=== PATIENT | male | born 1965 | race Caucasian/White ===

== ENCOUNTER 2021-03-16 15:37 | Inpatient (IN) | payer OTHER ==
[2021-03-16] MEDS ORDERED: MAGNESIUM HYDROX 2400MG/30ML ORAL SUSPENSION 30 ML CUP PO PRN (16:50)
[2021-03-16] MEDS ORDERED: MAGNESIUM CITRATE 300 ML BOTTLE PO PRN (16:50)
[2021-03-16] MEDS ORDERED: BISMUTH SUBSALICYLATE 524 MG/30 ML PO PRN (16:50)
[2021-03-16] MEDS ORDERED: MENTHOL/PHENOL 1 EACH UD MM PRN (16:50)
[2021-03-16] MEDS ORDERED: IBUPROFEN 400 MG TABLET (FP) PO PRN (16:50)
[2021-03-16] MEDS ORDERED: ACETAMINOPHEN 325 MG TABLET (FP) PO PRN ×2 (16:50)
[2021-03-16] MEDS ORDERED: NICOTINE POLACRILEX 2 MG GUM BUC PRN (16:50)
[2021-03-16] MEDS ORDERED: ONDANSETRON *ODT* 4 MG TABLET SL PRN (16:50)
[2021-03-16 19:20] VITALS: BMI 35.2
[2021-03-16] MEDS ORDERED: ALBUTEROL SO4 HFA INHALER IH PRN (19:28)
[2021-03-16] MEDS: hydrOXYzine PAMOATE 25 MG CAPSULE (FP) PO SCH ×3 (23:22→23:34)
[2021-03-16] MEDS: levETIRAcetam 500 MG TABLET (FP) PO SCH (23:22)
[2021-03-16] MEDS: MELATONIN 5 MG TABLETS PO SCH (23:22)
[2021-03-16] MEDS: THIAMINE HCL 100 MG TABLET (FP) PO SCH (23:22)
[2021-03-16] MEDS: diazePAM 5 MG TABLET PO SCH (23:22)
[2021-03-17] MEDS: diazePAM 5 MG TABLET PO SCH ×4 (05:55→22:06)
[2021-03-17] MEDS: hydrOXYzine PAMOATE 25 MG CAPSULE (FP) PO SCH (05:55)
[2021-03-17] MEDS ORDERED: methaDONE HCL 10 MG TABLET PO ONE (09:04)
[2021-03-17] MEDS ORDERED: methaDONE HCL 40 MG DISPERSABLE TABLET ONE (10:10)
[2021-03-17] MEDS: LIDOCAINE 5% TOPICAL PATCH TP SCH (10:10)
[2021-03-17] MEDS ORDERED: methaDONE HCL 10 MG TABLET ONE (10:10)
[2021-03-17] MEDS: PRENATAL VITAMINS W/ FOLIC ACID TABLET (FP) PO SCH (10:11)
[2021-03-17] MEDS: METHOCARBAMOL 500 MG TABLET PO PRN ×2 (10:59→17:38)
[2021-03-17 12:36] LABS: HEMATOCRIT 40.2 % (35.4-49); HEMOGLOBIN 13.4 GM/dL (11.7-16.9); MCH 27.5 pg (25.7-33.7); MCHC 33.4 g/dl (32.0-35.9); MEAN CELL VOLUME 82.3 fl (80-96); MEAN PLT VOLUME 7.4 fl (7.5-11.1); PLATELET COUNT 322 10^3/uL (134-434); RBC 4.89 M/mm3 (4.00-5.60); WHITE BLOOD COUNT 6.1 K/mm3 (4.0-10.0)
[2021-03-17 13:02] LABS: ALBUMIN 3.9 g/dl (3.4-5.0)
[2021-03-17 13:03] LABS: BLOOD UREA NITROGEN 17.5 mg/dL (7-18)
[2021-03-17 13:06] LABS: CREATININE 1.1 mg/dL (0.55-1.3)
[2021-03-17 13:07] LABS: BILIRUBIN,TOTAL 0.3 mg/dL (0.2-1); TOT PROT 7.4 g/dl (6.4-8.2)
[2021-03-17] MEDS: diazePAM 5 MG TABLET PO PRN ×2 (14:12→21:08)
[2021-03-17] MEDS: hydrOXYzine PAMOATE 25 MG CAPSULE (FP) PO PRN (17:36)
[2021-03-17] MEDS: MIRTAZAPINE 15 MG TABLET (FP) PO SCH (22:05)
[2021-03-17] MEDS: MELATONIN 5 MG TABLETS PO SCH (22:05)
[2021-03-17] MEDS: THIAMINE HCL 100 MG TABLET (FP) PO SCH (22:05)
[2021-03-17] MEDS: levETIRAcetam 500 MG TABLET (FP) PO SCH (22:05)
[2021-03-17] MEDS: LIDOCAINE PATCH REMOVAL MC SCH (22:06)
[2021-03-18] MEDS ORDERED: methaDONE HCL 10 MG TABLET ONE (04:25)
[2021-03-18] MEDS ORDERED: methaDONE HCL 40 MG DISPERSABLE TABLET ONE (04:25)
[2021-03-18] MEDS ORDERED: methaDONE HCL 40 MG DISPERSABLE TABLET PO SCH (06:00)
[2021-03-18] MEDS: diazePAM 5 MG TABLET PO SCH ×3 (06:05→22:57)
[2021-03-18] MEDS: hydrOXYzine PAMOATE 25 MG CAPSULE (FP) PO PRN ×4 (06:12→22:05)
[2021-03-18] MEDS: PRENATAL VITAMINS W/ FOLIC ACID TABLET (FP) PO SCH (10:13)
[2021-03-18] MEDS: LIDOCAINE 5% TOPICAL PATCH TP SCH (10:13)
[2021-03-18] MEDS: diazePAM 5 MG TABLET PO PRN ×2 (10:16→17:18)
[2021-03-18] MEDS: METHOCARBAMOL 750 MG TAB PO PRN ×2 (13:30→22:05)
[2021-03-18] MEDS: ARTIFICIAL TEARS (POLYVINYL ALCOHOL) OPTH DROPS OU PRN (17:21)
[2021-03-18] MEDS: MELATONIN 5 MG TABLETS PO SCH (22:03)
[2021-03-18] MEDS: MIRTAZAPINE 15 MG TABLET (FP) PO SCH (22:03)
[2021-03-18] MEDS: THIAMINE HCL 100 MG TABLET (FP) PO SCH (22:03)
[2021-03-18] MEDS: levETIRAcetam 500 MG TABLET (FP) PO SCH (22:04)
[2021-03-18] MEDS: MAG HYDROX/AL HYDROX/SIMETH 30 ML UNIT-DOSE CUP PO PRN (22:07)
[2021-03-18] MEDS: LIDOCAINE PATCH REMOVAL MC SCH (22:57)
[2021-03-19] MEDS: diazePAM 5 MG TABLET PO PRN ×3 (03:02→14:21)
[2021-03-19] MEDS ORDERED: methaDONE HCL 40 MG DISPERSABLE TABLET ONE (04:42)
[2021-03-19] MEDS ORDERED: methaDONE HCL 10 MG TABLET ONE (04:42)
[2021-03-19] MEDS: diazePAM 5 MG TABLET PO SCH ×2 (06:11→17:23)
[2021-03-19] MEDS: METHOCARBAMOL 750 MG TAB PO PRN ×2 (06:15→17:27)
[2021-03-19] MEDS: hydrOXYzine PAMOATE 25 MG CAPSULE (FP) PO PRN ×2 (06:15→14:21)
[2021-03-19] MEDS: LIDOCAINE 5% TOPICAL PATCH TP SCH (10:10)
[2021-03-19] MEDS: PRENATAL VITAMINS W/ FOLIC ACID TABLET (FP) PO SCH (10:10)
[2021-03-19] MEDS: MAG HYDROX/AL HYDROX/SIMETH 30 ML UNIT-DOSE CUP PO PRN (10:15)
[2021-03-19] MEDS: ARTIFICIAL TEARS (POLYVINYL ALCOHOL) OPTH DROPS OU PRN ×2 (10:16→18:22)
[2021-03-19] MEDS: HYDROCORTISONE 1% TOPICAL CREAM 30 GM TUBE TP SCH ×2 (11:41→22:14)
[2021-03-19] MEDS: MIRTAZAPINE 15 MG TABLET (FP) PO SCH (22:13)
[2021-03-19] MEDS: MELATONIN 5 MG TABLETS PO SCH (22:14)
[2021-03-19] MEDS: THIAMINE HCL 100 MG TABLET (FP) PO SCH (22:14)
[2021-03-19] MEDS: levETIRAcetam 500 MG TABLET (FP) PO SCH (22:14)
[2021-03-19] MEDS: LIDOCAINE PATCH REMOVAL MC SCH (22:14)
[2021-03-20] MEDS ORDERED: methaDONE HCL 40 MG DISPERSABLE TABLET ONE (04:55)
[2021-03-20] MEDS ORDERED: methaDONE HCL 10 MG TABLET ONE (04:55)
[2021-03-20] MEDS: hydrOXYzine PAMOATE 25 MG CAPSULE (FP) PO PRN ×2 (05:44→10:34)
[2021-03-20] MEDS: METHOCARBAMOL 750 MG TAB PO PRN (05:45)
[2021-03-20] MEDS ORDERED: diazePAM 5 MG TABLET PO ONE (06:00)
[2021-03-20] MEDS: PRENATAL VITAMINS W/ FOLIC ACID TABLET (FP) PO SCH (10:32)
[2021-03-20] MEDS: LIDOCAINE 5% TOPICAL PATCH TP SCH (10:32)
[2021-03-20] MEDS: HYDROCORTISONE 1% TOPICAL CREAM 30 GM TUBE TP SCH (10:32)
[2021-03-20] MEDS: MAG HYDROX/AL HYDROX/SIMETH 30 ML UNIT-DOSE CUP PO PRN (10:36)
[2021-03-20 13:46] VITALS: BP 133/78; PULSE 57; TEMP 96.1
== END 2021-03-20 13:54 | disposition other institution (70) | DRG 773 ==
LOC: YASAS 15:37 → Y3N 19:22
PROVIDERS: ADMIT Allergy & Immunology; ATTEND Allergy & Immunology
PROC: HZ2ZZZZ Detoxification Services for Substance Abuse Treatment (ICD-10-PCS; principal; 2021-03-16)
DX: F10.230 Alcohol dependence with withdrawal, uncomplicated (principal); F13.230 Sedative, hypnotic or anxiolytic dependence with withdrawal, uncomplicated; F14.20 Cocaine dependence, uncomplicated; F11.20 Opioid dependence, uncomplicated; F17.220 Nicotine dependence, chewing tobacco, uncomplicated; F19.282 Other psychoactive substance dependence with psychoactive substance-induced sleep disorder; F32.9 Major depressive disorder, single episode, unspecified; G40.909 Epilepsy, unspecified, not intractable, without status epilepticus; J45.909 Unspecified asthma, uncomplicated; R76.11 Nonspecific reaction to tuberculin skin test without active tuberculosis; Z62.810 Personal history of physical and sexual abuse in childhood; Z99.89 Dependence on other enabling machines and devices; Z91.5 Personal history of self-harm; Z56.0 Unemployment, unspecified; Z59.0 Homelessness
CPT/HCPCS: 36415; 80053; 80177; 85027; 86780; 93005; 93010; C9803; Q0162; U0003; U0005

== ENCOUNTER 2021-03-20 13:51 | Inpatient (IN) | payer OTHER ==
[2021-03-20] MEDS ORDERED: LOPERAMIDE HCL 2 MG CAPSULE PO PRN (14:26)
[2021-03-20] MEDS ORDERED: MENTHOL/PHENOL 1 EACH UD MM PRN (14:26)
[2021-03-20] MEDS ORDERED: MAGNESIUM CITRATE 300 ML BOTTLE PO PRN (14:26)
[2021-03-20] MEDS ORDERED: MAGNESIUM HYDROX 2400MG/30ML ORAL SUSPENSION 30 ML CUP PO PRN (14:26)
[2021-03-20] MEDS ORDERED: ACETAMINOPHEN 325 MG TABLET (FP) PO PRN (14:26)
[2021-03-20] MEDS ORDERED: P-EPHED 60MG/TRIPROLIDI 2.5MG TABLET PO PRN (14:26)
[2021-03-20] MEDS ORDERED: guaiFENesin 200 MG/10 ML 10 ML UNIT-DOSE CUPS PO PRN (14:26)
[2021-03-20] MEDS ORDERED: ALBUTEROL SO4 HFA INHALER IH PRN (14:27)
[2021-03-20] MEDS: hydrOXYzine PAMOATE 25 MG CAPSULE (FP) PO PRN ×2 (19:11→21:32)
[2021-03-20] MEDS: IBUPROFEN 400 MG TABLET (FP) PO PRN (19:11)
[2021-03-20] MEDS: MIRTAZAPINE 15 MG TABLET (FP) PO SCH (21:31)
[2021-03-20] MEDS: MELATONIN 5 MG TABLETS PO SCH (21:31)
[2021-03-20] MEDS: levETIRAcetam 500 MG TABLET (FP) PO SCH (21:31)
[2021-03-20] MEDS: THIAMINE HCL 100 MG TABLET (FP) PO SCH (21:31)
[2021-03-20] MEDS: LIDOCAINE PATCH REMOVAL MC SCH (23:32)
[2021-03-21] MEDS: MAG HYDROX/AL HYDROX/SIMETH 30 ML UNIT-DOSE CUP PO PRN (03:19)
[2021-03-21] MEDS ORDERED: methaDONE HCL 40 MG DISPERSABLE TABLET ONE (05:44)
[2021-03-21] MEDS ORDERED: methaDONE HCL 10 MG TABLET ONE (05:44)
[2021-03-21] MEDS ORDERED: ONDANSETRON *ODT* 4 MG TABLET SL PRN (09:20)
[2021-03-21] MEDS: LIDOCAINE 5% TOPICAL PATCH TP SCH (09:41)
[2021-03-21] MEDS: hydrOXYzine PAMOATE 25 MG CAPSULE (FP) PO PRN (09:41)
[2021-03-21] MEDS: NICOTINE 7 MG/24 HOURS TOPICAL PATCH TD SCH (09:42)
[2021-03-21] MEDS: PRENATAL VITAMINS W/ FOLIC ACID TABLET (FP) PO SCH (09:42)
[2021-03-21] MEDS ORDERED: methaDONE HCL 10 MG TABLET PO ONE (15:06)
[2021-03-21] MEDS: TRIMETHOBENZAMIDE HCL 200MG/2ML INJ IM PRN (15:57)
[2021-03-21] MEDS: levETIRAcetam 500 MG TABLET (FP) PO SCH (21:41)
[2021-03-21] MEDS: MELATONIN 5 MG TABLETS PO SCH (21:44)
[2021-03-21] MEDS: MIRTAZAPINE 15 MG TABLET (FP) PO SCH (21:44)
[2021-03-21] MEDS: LIDOCAINE PATCH REMOVAL MC SCH (21:44)
[2021-03-21] MEDS: THIAMINE HCL 100 MG TABLET (FP) PO SCH (21:44)
[2021-03-22] MEDS ORDERED: methaDONE HCL 40 MG DISPERSABLE TABLET ONE (03:43)
[2021-03-22] MEDS ORDERED: methaDONE HCL 10 MG TABLET ONE (03:43)
[2021-03-22] MEDS: hydrOXYzine PAMOATE 25 MG CAPSULE (FP) PO PRN ×4 (06:25→21:38)
[2021-03-22] MEDS: TRIMETHOBENZAMIDE HCL 200MG/2ML INJ IM PRN (06:44)
[2021-03-22] MEDS: PRENATAL VITAMINS W/ FOLIC ACID TABLET (FP) PO SCH (09:40)
[2021-03-22] MEDS: NICOTINE 7 MG/24 HOURS TOPICAL PATCH TD SCH (09:40)
[2021-03-22] MEDS: LIDOCAINE 5% TOPICAL PATCH TP SCH (09:40)
[2021-03-22] MEDS: THIAMINE HCL 100 MG TABLET (FP) PO SCH (21:38)
[2021-03-22] MEDS: MELATONIN 5 MG TABLETS PO SCH (21:38)
[2021-03-22] MEDS: levETIRAcetam 500 MG TABLET (FP) PO SCH (21:40)
[2021-03-22] MEDS: LIDOCAINE PATCH REMOVAL MC SCH (21:41)
[2021-03-22] MEDS: MIRTAZAPINE 15 MG TABLET (FP) PO SCH (21:41)
[2021-03-23] MEDS ORDERED: methaDONE HCL 10 MG TABLET ONE (03:15)
[2021-03-23] MEDS ORDERED: methaDONE HCL 40 MG DISPERSABLE TABLET ONE (03:16)
[2021-03-23] MEDS: NICOTINE 7 MG/24 HOURS TOPICAL PATCH TD SCH (10:05)
[2021-03-23] MEDS: PRENATAL VITAMINS W/ FOLIC ACID TABLET (FP) PO SCH (10:05)
[2021-03-23] MEDS: LIDOCAINE 5% TOPICAL PATCH TP SCH (10:05)
[2021-03-23] MEDS: hydrOXYzine PAMOATE 25 MG CAPSULE (FP) PO PRN ×4 (10:06→21:23)
[2021-03-23] MEDS ORDERED: COVID-19 VAC,AD26(JANSSEN)/PF 0.5 ML IM ONE (11:00)
[2021-03-23] MEDS ORDERED: levETIRAcetam 500 MG TABLET (FP) PO ONE (12:14)
[2021-03-23] MEDS: ARTIFICIAL TEARS (POLYVINYL ALCOHOL) OPTH DROPS OD PRN (13:29)
[2021-03-23] MEDS ORDERED: PT OWN MED DRAWER 7, Y5N ONE ×2 (13:29→21:24)
[2021-03-23] MEDS: IBUPROFEN 400 MG TABLET (FP) PO PRN (17:39)
[2021-03-23] MEDS: MIRTAZAPINE 15 MG TABLET (FP) PO SCH (21:22)
[2021-03-23] MEDS: THIAMINE HCL 100 MG TABLET (FP) PO SCH (21:23)
[2021-03-23] MEDS: MELATONIN 5 MG TABLETS PO SCH (21:23)
[2021-03-23] MEDS: LIDOCAINE PATCH REMOVAL MC SCH (22:02)
[2021-03-23] MEDS: levETIRAcetam 500 MG TABLET (FP) PO SCH (22:05)
[2021-03-24] MEDS ORDERED: methaDONE HCL 10 MG TABLET ONE (03:24)
[2021-03-24] MEDS ORDERED: methaDONE HCL 40 MG DISPERSABLE TABLET ONE (03:25)
[2021-03-24] MEDS: ARTIFICIAL TEARS (POLYVINYL ALCOHOL) OPTH DROPS OD PRN ×2 (07:15→17:57)
[2021-03-24] MEDS ORDERED: PT OWN MED DRAWER 7, Y5N ONE ×2 (07:16→17:56)
[2021-03-24] MEDS: levETIRAcetam 500 MG TABLET (FP) PO SCH ×2 (09:35→21:34)
[2021-03-24] MEDS: NICOTINE 7 MG/24 HOURS TOPICAL PATCH TD SCH (09:35)
[2021-03-24] MEDS: hydrOXYzine PAMOATE 25 MG CAPSULE (FP) PO PRN ×3 (09:35→17:57)
[2021-03-24] MEDS: PRENATAL VITAMINS W/ FOLIC ACID TABLET (FP) PO SCH (09:35)
[2021-03-24] MEDS: IBUPROFEN 400 MG TABLET (FP) PO PRN ×2 (09:35→17:57)
[2021-03-24] MEDS: LIDOCAINE 5% TOPICAL PATCH TP SCH (09:35)
[2021-03-24] MEDS: LIDOCAINE PATCH REMOVAL MC SCH (21:34)
[2021-03-24] MEDS: MELATONIN 5 MG TABLETS PO SCH (21:35)
[2021-03-24] MEDS: MIRTAZAPINE 15 MG TABLET (FP) PO SCH (21:35)
[2021-03-24] MEDS: THIAMINE HCL 100 MG TABLET (FP) PO SCH (21:35)
[2021-03-25] MEDS ORDERED: methaDONE HCL 10 MG TABLET ONE (03:36)
[2021-03-25] MEDS ORDERED: methaDONE HCL 40 MG DISPERSABLE TABLET ONE (03:36)
[2021-03-25] MEDS: PRENATAL VITAMINS W/ FOLIC ACID TABLET (FP) PO SCH (09:46)
[2021-03-25] MEDS: LIDOCAINE 5% TOPICAL PATCH TP SCH (09:46)
[2021-03-25] MEDS: NICOTINE 7 MG/24 HOURS TOPICAL PATCH TD SCH (09:46)
[2021-03-25] MEDS: levETIRAcetam 500 MG TABLET (FP) PO SCH ×2 (09:46→21:26)
[2021-03-25] MEDS: ARTIFICIAL TEARS (POLYVINYL ALCOHOL) OPTH DROPS OD PRN ×2 (09:47→21:25)
[2021-03-25] MEDS: hydrOXYzine PAMOATE 25 MG CAPSULE (FP) PO PRN ×3 (09:48→21:26)
[2021-03-25] MEDS ORDERED: PT OWN MED DRAWER 7, Y5N ONE ×4 (10:07→21:26)
[2021-03-25] MEDS: MIRTAZAPINE 15 MG TABLET (FP) PO SCH (21:26)
[2021-03-25] MEDS: MELATONIN 5 MG TABLETS PO SCH (21:26)
[2021-03-25] MEDS: THIAMINE HCL 100 MG TABLET (FP) PO SCH (21:26)
[2021-03-25] MEDS: LIDOCAINE PATCH REMOVAL MC SCH (22:40)
[2021-03-26] MEDS ORDERED: methaDONE HCL 40 MG DISPERSABLE TABLET ONE (03:55)
[2021-03-26] MEDS ORDERED: methaDONE HCL 10 MG TABLET ONE (03:55)
[2021-03-26] MEDS: LIDOCAINE 5% TOPICAL PATCH TP SCH (09:50)
[2021-03-26] MEDS: NICOTINE 7 MG/24 HOURS TOPICAL PATCH TD SCH (09:50)
[2021-03-26] MEDS: levETIRAcetam 500 MG TABLET (FP) PO SCH ×2 (09:50→21:11)
[2021-03-26] MEDS: PRENATAL VITAMINS W/ FOLIC ACID TABLET (FP) PO SCH (09:50)
[2021-03-26] MEDS: hydrOXYzine PAMOATE 25 MG CAPSULE (FP) PO PRN ×3 (09:51→21:12)
[2021-03-26] MEDS ORDERED: PT OWN MED DRAWER 7, Y5N ONE ×3 (09:52→15:41)
[2021-03-26] MEDS: ARTIFICIAL TEARS (POLYVINYL ALCOHOL) OPTH DROPS OD PRN (09:52)
[2021-03-26] MEDS: IBUPROFEN 400 MG TABLET (FP) PO PRN (13:42)
[2021-03-26] MEDS: THIAMINE HCL 100 MG TABLET (FP) PO SCH (21:11)
[2021-03-26] MEDS: MIRTAZAPINE 15 MG TABLET (FP) PO SCH (21:12)
[2021-03-26] MEDS: MELATONIN 5 MG TABLETS PO SCH (21:16)
[2021-03-26] MEDS: LIDOCAINE PATCH REMOVAL MC SCH (23:21)
[2021-03-27] MEDS ORDERED: methaDONE HCL 10 MG TABLET ONE (04:02)
[2021-03-27] MEDS ORDERED: methaDONE HCL 40 MG DISPERSABLE TABLET ONE (04:03)
[2021-03-27] MEDS: ARTIFICIAL TEARS (POLYVINYL ALCOHOL) OPTH DROPS OD PRN ×3 (06:24→21:11)
[2021-03-27] MEDS: NICOTINE 7 MG/24 HOURS TOPICAL PATCH TD SCH (10:07)
[2021-03-27] MEDS: LIDOCAINE 5% TOPICAL PATCH TP SCH (10:07)
[2021-03-27] MEDS: levETIRAcetam 500 MG TABLET (FP) PO SCH ×2 (10:07→21:08)
[2021-03-27] MEDS: PRENATAL VITAMINS W/ FOLIC ACID TABLET (FP) PO SCH (10:07)
[2021-03-27] MEDS: hydrOXYzine PAMOATE 25 MG CAPSULE (FP) PO PRN ×4 (10:08→21:08)
[2021-03-27] MEDS: NICOTINE POLACRILEX 2 MG GUM BUC PRN (10:11)
[2021-03-27] MEDS: MIRTAZAPINE 15 MG TABLET (FP) PO SCH (21:07)
[2021-03-27] MEDS: THIAMINE HCL 100 MG TABLET (FP) PO SCH (21:08)
[2021-03-27] MEDS ORDERED: PT OWN MED DRAWER 7, Y5N ONE (21:13)
[2021-03-27] MEDS: LIDOCAINE PATCH REMOVAL MC SCH (22:06)
[2021-03-27] MEDS: MELATONIN 5 MG TABLETS PO SCH (22:06)
[2021-03-28] MEDS ORDERED: methaDONE HCL 40 MG DISPERSABLE TABLET ONE (05:50)
[2021-03-28] MEDS ORDERED: methaDONE HCL 10 MG TABLET ONE (05:50)
[2021-03-28] MEDS ORDERED: PT OWN MED DRAWER 7, Y5N ONE (08:19)
[2021-03-28] MEDS: LIDOCAINE 5% TOPICAL PATCH TP SCH (09:52)
[2021-03-28] MEDS: NICOTINE 7 MG/24 HOURS TOPICAL PATCH TD SCH (09:53)
[2021-03-28] MEDS: levETIRAcetam 500 MG TABLET (FP) PO SCH ×2 (09:53→21:07)
[2021-03-28] MEDS: hydrOXYzine PAMOATE 25 MG CAPSULE (FP) PO PRN ×2 (09:54→21:08)
[2021-03-28] MEDS: PRENATAL VITAMINS W/ FOLIC ACID TABLET (FP) PO SCH (09:54)
[2021-03-28] MEDS: MAG HYDROX/AL HYDROX/SIMETH 30 ML UNIT-DOSE CUP PO PRN (14:55)
[2021-03-28] MEDS: ARTIFICIAL TEARS (POLYVINYL ALCOHOL) OPTH DROPS OD PRN (21:05)
[2021-03-28] MEDS: MIRTAZAPINE 15 MG TABLET (FP) PO SCH (21:06)
[2021-03-28] MEDS: THIAMINE HCL 100 MG TABLET (FP) PO SCH (21:07)
[2021-03-28] MEDS: LIDOCAINE PATCH REMOVAL MC SCH (22:08)
[2021-03-28] MEDS: MELATONIN 5 MG TABLETS PO SCH (22:09)
[2021-03-29] MEDS ORDERED: methaDONE HCL 10 MG TABLET ONE (03:27)
[2021-03-29] MEDS ORDERED: methaDONE HCL 40 MG DISPERSABLE TABLET ONE (03:28)
[2021-03-29] MEDS ORDERED: PT OWN MED DRAWER 7, Y5N ONE ×3 (08:26→10:14)
[2021-03-29] MEDS: LIDOCAINE 5% TOPICAL PATCH TP SCH (10:08)
[2021-03-29] MEDS: NICOTINE 7 MG/24 HOURS TOPICAL PATCH TD SCH (10:08)
[2021-03-29] MEDS: levETIRAcetam 500 MG TABLET (FP) PO SCH ×2 (10:08→21:05)
[2021-03-29] MEDS: hydrOXYzine PAMOATE 25 MG CAPSULE (FP) PO PRN (10:09)
[2021-03-29] MEDS: PRENATAL VITAMINS W/ FOLIC ACID TABLET (FP) PO SCH (10:09)
[2021-03-29] MEDS: ARTIFICIAL TEARS (POLYVINYL ALCOHOL) OPTH DROPS OD PRN (10:10)
[2021-03-29] MEDS: MIRTAZAPINE 15 MG TABLET (FP) PO SCH (21:05)
[2021-03-29] MEDS: THIAMINE HCL 100 MG TABLET (FP) PO SCH (21:06)
[2021-03-29] MEDS: MELATONIN 5 MG TABLETS PO SCH (21:06)
[2021-03-29] MEDS: LIDOCAINE PATCH REMOVAL MC SCH (21:07)
[2021-03-30] MEDS ORDERED: methaDONE HCL 10 MG TABLET ONE (03:33)
[2021-03-30] MEDS ORDERED: methaDONE HCL 40 MG DISPERSABLE TABLET ONE (03:34)
[2021-03-30] MEDS: PRENATAL VITAMINS W/ FOLIC ACID TABLET (FP) PO SCH (09:50)
[2021-03-30] MEDS: levETIRAcetam 500 MG TABLET (FP) PO SCH ×2 (09:50→21:06)
[2021-03-30] MEDS: NICOTINE 7 MG/24 HOURS TOPICAL PATCH TD SCH (09:50)
[2021-03-30] MEDS: LIDOCAINE 5% TOPICAL PATCH TP SCH (09:50)
[2021-03-30] MEDS: hydrOXYzine PAMOATE 25 MG CAPSULE (FP) PO PRN ×2 (09:51→18:05)
[2021-03-30] MEDS: NICOTINE POLACRILEX 2 MG GUM BUC PRN (09:53)
[2021-03-30] MEDS: THIAMINE HCL 100 MG TABLET (FP) PO SCH (21:06)
[2021-03-30] MEDS: MIRTAZAPINE 15 MG TABLET (FP) PO SCH (21:06)
[2021-03-30] MEDS: MELATONIN 5 MG TABLETS PO SCH (21:06)
[2021-03-30] MEDS: LIDOCAINE PATCH REMOVAL MC SCH (21:08)
[2021-03-31] MEDS ORDERED: methaDONE HCL 40 MG DISPERSABLE TABLET ONE (04:02)
[2021-03-31] MEDS ORDERED: methaDONE HCL 10 MG TABLET ONE (04:02)
[2021-03-31] MEDS: LIDOCAINE 5% TOPICAL PATCH TP SCH (10:01)
[2021-03-31] MEDS: PRENATAL VITAMINS W/ FOLIC ACID TABLET (FP) PO SCH (10:01)
[2021-03-31] MEDS: levETIRAcetam 500 MG TABLET (FP) PO SCH ×2 (10:02→21:53)
[2021-03-31] MEDS: NICOTINE 7 MG/24 HOURS TOPICAL PATCH TD SCH (10:02)
[2021-03-31] MEDS: hydrOXYzine PAMOATE 25 MG CAPSULE (FP) PO PRN ×3 (10:03→21:54)
[2021-03-31] MEDS: THIAMINE HCL 100 MG TABLET (FP) PO SCH (21:52)
[2021-03-31] MEDS: MELATONIN 5 MG TABLETS PO SCH (21:53)
[2021-03-31] MEDS: MIRTAZAPINE 15 MG TABLET (FP) PO SCH (21:54)
[2021-03-31] MEDS: LIDOCAINE PATCH REMOVAL MC SCH (21:54)
[2021-04-01] MEDS ORDERED: methaDONE HCL 10 MG TABLET ONE (03:24)
[2021-04-01] MEDS ORDERED: methaDONE HCL 40 MG DISPERSABLE TABLET ONE (03:24)
[2021-04-01] MEDS: NICOTINE 7 MG/24 HOURS TOPICAL PATCH TD SCH (09:59)
[2021-04-01] MEDS: PRENATAL VITAMINS W/ FOLIC ACID TABLET (FP) PO SCH (09:59)
[2021-04-01] MEDS: levETIRAcetam 500 MG TABLET (FP) PO SCH ×2 (09:59→21:14)
[2021-04-01] MEDS: LIDOCAINE 5% TOPICAL PATCH TP SCH (09:59)
[2021-04-01] MEDS: hydrOXYzine PAMOATE 25 MG CAPSULE (FP) PO PRN ×2 (09:59→21:15)
[2021-04-01] MEDS: NICOTINE POLACRILEX 2 MG GUM BUC PRN (10:00)
[2021-04-01] MEDS: MELATONIN 5 MG TABLETS PO SCH (21:14)
[2021-04-01] MEDS: THIAMINE HCL 100 MG TABLET (FP) PO SCH (21:14)
[2021-04-01] MEDS: MIRTAZAPINE 15 MG TABLET (FP) PO SCH (21:14)
[2021-04-01] MEDS: LIDOCAINE PATCH REMOVAL MC SCH (21:15)
[2021-04-02] MEDS ORDERED: methaDONE HCL 10 MG TABLET ONE (06:18)
[2021-04-02] MEDS ORDERED: methaDONE HCL 40 MG DISPERSABLE TABLET ONE (06:18)
[2021-04-02] MEDS ORDERED: PT OWN MED DRAWER 7, Y5N ONE (08:42)
[2021-04-02] MEDS: levETIRAcetam 500 MG TABLET (FP) PO SCH ×2 (09:31→21:16)
[2021-04-02] MEDS: LIDOCAINE 5% TOPICAL PATCH TP SCH (09:31)
[2021-04-02] MEDS: NICOTINE 7 MG/24 HOURS TOPICAL PATCH TD SCH (09:32)
[2021-04-02] MEDS: PRENATAL VITAMINS W/ FOLIC ACID TABLET (FP) PO SCH (09:32)
[2021-04-02] MEDS: hydrOXYzine PAMOATE 25 MG CAPSULE (FP) PO PRN ×2 (09:33→21:19)
[2021-04-02] MEDS: ARTIFICIAL TEARS (POLYVINYL ALCOHOL) OPTH DROPS OD PRN (21:15)
[2021-04-02] MEDS: THIAMINE HCL 100 MG TABLET (FP) PO SCH (21:16)
[2021-04-02] MEDS: MIRTAZAPINE 15 MG TABLET (FP) PO SCH (21:16)
[2021-04-02] MEDS: MELATONIN 5 MG TABLETS PO SCH (21:17)
[2021-04-02] MEDS: LIDOCAINE PATCH REMOVAL MC SCH (21:22)
[2021-04-03] MEDS ORDERED: methaDONE HCL 10 MG TABLET ONE (04:06)
[2021-04-03] MEDS ORDERED: methaDONE HCL 40 MG DISPERSABLE TABLET ONE (04:07)
[2021-04-03] MEDS ORDERED: PT OWN MED DRAWER 7, Y5N ONE ×2 (09:36→15:48)
[2021-04-03] MEDS: levETIRAcetam 500 MG TABLET (FP) PO SCH ×2 (09:39→21:10)
[2021-04-03] MEDS: LIDOCAINE 5% TOPICAL PATCH TP SCH (09:39)
[2021-04-03] MEDS: hydrOXYzine PAMOATE 25 MG CAPSULE (FP) PO PRN ×3 (09:40→21:13)
[2021-04-03] MEDS: PRENATAL VITAMINS W/ FOLIC ACID TABLET (FP) PO SCH (09:40)
[2021-04-03] MEDS: NICOTINE 7 MG/24 HOURS TOPICAL PATCH TD SCH (09:40)
[2021-04-03] MEDS: MIRTAZAPINE 15 MG TABLET (FP) PO SCH (21:10)
[2021-04-03] MEDS: MELATONIN 5 MG TABLETS PO SCH (21:11)
[2021-04-03] MEDS: LIDOCAINE PATCH REMOVAL MC SCH (21:11)
[2021-04-03] MEDS: THIAMINE HCL 100 MG TABLET (FP) PO SCH (21:12)
[2021-04-04] MEDS ORDERED: methaDONE HCL 10 MG TABLET ONE (04:38)
[2021-04-04] MEDS ORDERED: methaDONE HCL 40 MG DISPERSABLE TABLET ONE (04:39)
[2021-04-04] MEDS: LIDOCAINE 5% TOPICAL PATCH TP SCH (09:50)
[2021-04-04] MEDS: PRENATAL VITAMINS W/ FOLIC ACID TABLET (FP) PO SCH (09:50)
[2021-04-04] MEDS: hydrOXYzine PAMOATE 25 MG CAPSULE (FP) PO PRN ×3 (09:50→21:29)
[2021-04-04] MEDS: levETIRAcetam 500 MG TABLET (FP) PO SCH ×2 (09:50→21:29)
[2021-04-04] MEDS: NICOTINE 7 MG/24 HOURS TOPICAL PATCH TD SCH (09:50)
[2021-04-04] MEDS: IBUPROFEN 400 MG TABLET (FP) PO PRN (17:36)
[2021-04-04] MEDS: LIDOCAINE PATCH REMOVAL MC SCH (21:29)
[2021-04-04] MEDS: THIAMINE HCL 100 MG TABLET (FP) PO SCH (21:29)
[2021-04-04] MEDS: MELATONIN 5 MG TABLETS PO SCH (21:29)
[2021-04-04] MEDS: MIRTAZAPINE 15 MG TABLET (FP) PO SCH (21:29)
[2021-04-05] MEDS ORDERED: methaDONE HCL 40 MG DISPERSABLE TABLET ONE (04:32)
[2021-04-05] MEDS ORDERED: methaDONE HCL 10 MG TABLET ONE (04:32)
[2021-04-05] MEDS: LIDOCAINE 5% TOPICAL PATCH TP SCH (09:54)
[2021-04-05] MEDS: IBUPROFEN 400 MG TABLET (FP) PO PRN ×2 (09:54→18:47)
[2021-04-05] MEDS: hydrOXYzine PAMOATE 25 MG CAPSULE (FP) PO PRN ×3 (09:54→21:15)
[2021-04-05] MEDS: levETIRAcetam 500 MG TABLET (FP) PO SCH ×2 (09:54→21:14)
[2021-04-05] MEDS: NICOTINE 7 MG/24 HOURS TOPICAL PATCH TD SCH (09:54)
[2021-04-05] MEDS: PRENATAL VITAMINS W/ FOLIC ACID TABLET (FP) PO SCH (09:54)
[2021-04-05] MEDS: ARTIFICIAL TEARS (POLYVINYL ALCOHOL) OPTH DROPS OD PRN (09:57)
[2021-04-05] MEDS ORDERED: PT OWN MED DRAWER 7, Y5N ONE (18:50)
[2021-04-05] MEDS ORDERED: MASKS NR ONE (18:56)
[2021-04-05] MEDS ORDERED: NICOTINE 10 MG CARTRIDGE (INHALER) IH PRN (19:08)
[2021-04-05] MEDS: THIAMINE HCL 100 MG TABLET (FP) PO SCH (21:14)
[2021-04-05] MEDS: MELATONIN 5 MG TABLETS PO SCH (21:14)
[2021-04-05] MEDS: MIRTAZAPINE 15 MG TABLET (FP) PO SCH (21:14)
[2021-04-05] MEDS: LIDOCAINE PATCH REMOVAL MC SCH (21:15)
[2021-04-06] MEDS ORDERED: methaDONE HCL 40 MG DISPERSABLE TABLET ONE (04:23)
[2021-04-06] MEDS ORDERED: methaDONE HCL 10 MG TABLET ONE (04:23)
[2021-04-06 07:03] VITALS: BP 142/79; PULSE 62; TEMP 97.1
[2021-04-06] MEDS: PRENATAL VITAMINS W/ FOLIC ACID TABLET (FP) PO SCH (09:21)
[2021-04-06] MEDS: LIDOCAINE 5% TOPICAL PATCH TP SCH (09:21)
[2021-04-06] MEDS: levETIRAcetam 500 MG TABLET (FP) PO SCH (09:21)
[2021-04-06] MEDS: IBUPROFEN 400 MG TABLET (FP) PO PRN (09:24)
[2021-04-06] MEDS: hydrOXYzine PAMOATE 25 MG CAPSULE (FP) PO PRN (09:24)
== END 2021-04-06 09:45 | disposition home or self-care (01) | DRG 772 ==
LOC: YASAS 13:51 → Y3E 13:53
PROVIDERS: ADMIT Allergy & Immunology; ATTEND Allergy & Immunology
PROC: HZ42ZZZ Group Counseling for Substance Abuse Treatment, Cognitive-Behavioral (ICD-10-PCS; principal; 2021-03-20)
DX: F10.20 Alcohol dependence, uncomplicated (principal); F11.20 Opioid dependence, uncomplicated; F13.20 Sedative, hypnotic or anxiolytic dependence, uncomplicated; F14.20 Cocaine dependence, uncomplicated; F17.210 Nicotine dependence, cigarettes, uncomplicated; J45.909 Unspecified asthma, uncomplicated; G40.909 Epilepsy, unspecified, not intractable, without status epilepticus; Z91.14 Patient's other noncompliance with medication regimen
CPT/HCPCS: 0031A; 71046-TC-FY; 91303; Q0162